=== PATIENT | male | born 1960 | race Two or more races ===

== ENCOUNTER 2020-03-01 22:48 | Inpatient (IN) | payer BC ==
[~2020-03-01] VITALS: Ht 182.9 cm; Wt 80.4 kg
[~2020-03-01 22:48] MED LIST: BISACODYL 10MG SUPP PR PRN; DIPHENHYDRAMINE 25MG CAPSULE PO PRN
[2020-03-01] MEDS ORDERED: NITROGLYCERIN 0.4MG TABLET SL SL PRN (23:30)
[2020-03-01] MEDS: CHLORHEXIDINE GLUCONATE 4% EXTERNAL USE TOP SCH (23:30)
[2020-03-01] MEDS ORDERED: ACETAMINOPHEN 325MG TABLET PO PRN (23:30)
[2020-03-01] MEDS ORDERED: DOCUSATE SODIUM 100MG CAPSULE PO SCH (23:45)
[2020-03-02] VITALS (53 sets, daily range): BP systolic 79–288; BP diastolic 14–280
[2020-03-02 00:43] LABS: BASOPHILS % 0.8 % (0.0-2.0); EOSINOPHILS % 0.9 % (0.0-5.0); HEMATOCRIT. 37.9 % (42.0-52.0); HEMOGLOBIN. 13.3 g/dL (14.0-18.0); MEAN CORPUSCULAR HEMOGLOBIN 31.8 pg (28.0-32.0); MEAN CORPUSCULAR VOLUME 90.8 fL (80.0-94.0); MEAN PLATELET VOLUME 9.4 fl (7.4-10.4); MONOCYTES % 7.8 % (2.0-8.0); NEUTROPHILS % 42.5 % (40.0-76.0); PLATELET 227 x1000/uL (130-400); RED BLOOD CELL COUNT 4.18 mill/uL (4.7-6.1); RED CELL DISTRIBUTION WIDTH 12.9 % (11.6-14.6)
[2020-03-02 00:46] LABS: CHLORIDE 106 mEq/L (98-107)
[2020-03-02 00:56] LABS: INR 1.1; PARTIAL THROMBOPLASTIN TIME 32.5 sec (23.4-31.0); PROTHROMBIN TIME 11.4 sec (9.6-11.0)
[2020-03-02] MEDS ORDERED: OLME20TA22 MT (04:41)
[2020-03-02] MEDS ORDERED: METO-385 MT (04:41)
[2020-03-02] MEDS ORDERED: ATOR40TA70 MT (04:41)
[2020-03-02] MEDS ORDERED: METF-416 MT (04:41)
[2020-03-02] MEDS ORDERED: NITR0.4T49 SL (04:43)
[2020-03-02] MEDS ORDERED: EPINEPHRINE 4 MG in DEXT 5% WATER 246 ML IV ONE (05:00)
[2020-03-02] MEDS ORDERED: PHENYLEPHRINE 10 MG in DEXT 5% WATER 249 ML IV ONE (05:00)
[2020-03-02] MEDS ORDERED: DOBUTAMINE 250MG PREMIX 250 ML IV ONE (05:00)
[2020-03-02] MEDS ORDERED: DEL NIDO ELECTROLYTE-S(PH 7.4) 1,000 ML IV ONE ×2 (05:00)
[2020-03-02] MEDS ORDERED: DOPAMINE 400MG/250ML PREMIX 250 ML IV ONE (05:00)
[2020-03-02] MEDS ORDERED: INSULIN REGULAR (DRIP) 100 UNITS in SODIUM CHLORIDE 0.9% 99 ML IV ONE (05:00)
[2020-03-02] MEDS ORDERED: AMINOCAPROIC ACID 10,000 MG in SODIUM CHLORIDE 0.9% 460 ML IV ONE (05:00)
[2020-03-02] MEDS ORDERED: NICARDIPINE 40MG/200ML PREMIX 200 ML IV ONE (05:00)
[2020-03-02] MEDS ORDERED: PAPAVERINE HCL 180MG in SODIUM CHLORIDE 0.9% 24ML IV ONE (05:00)
[2020-03-02] MEDS ORDERED: DILTIAZEM HCL 5MG/ML 5ML VIAL IV ONE (05:00)
[2020-03-02] MEDS ORDERED: CEFAZOLIN 2,000 MG in DEXT 5% WATER 100 ML IV ONE (05:00)
[2020-03-02] MEDS ORDERED: NOREPINEPHRINE 4 MG in DEXT 5% WATER 246 ML IV ONE (05:00)
[2020-03-02 07:45] LABS: CLARITY URINE CLEAR (CLEAR); COLOR URINE YELLOW (YELLOW); KETONES URINE TRACE (NEGATIVE); LEUKOCYTE ESTERASE URINE NEGATIVE (NEGATIVE); NITRITE URINE NEGATIVE (NEGATIVE); OCCULT BLOOD URINE NEGATIVE (NEGATIVE); PH URINE 5.5 (4.5-8.0); PROTEIN URINE NEGATIVE (NEGATIVE); SPECIFIC GRAVITY URINE 1.019 (1.005-1.030); UROBILINOGEN URINE 0.2 E.U./dL (0.2-1.0)
[2020-03-02] MEDS ORDERED: HEPARIN 1000 UNITS/ML 10ML ONE ×3 (07:52→11:54)
[2020-03-02] MEDS ORDERED: SKIN ADHESIVE 0.7 GM EA TOP ONE (07:53)
[2020-03-02] MEDS ORDERED: BACITRACIN 15GM TUBE TOP ONE (07:53)
[2020-03-02] MEDS ORDERED: THROMBIN (BOVINE) 5000 UNITS/VIAL TOP ONE (07:54)
[2020-03-02] MEDS ORDERED: BACITRACIN 50,000 UNITS/VIAL ONE (07:54)
[2020-03-02] MEDS ORDERED: FUROSEMIDE 40MG/4ML VIAL IVP NR (08:30)
[2020-03-02] MEDS: CHLORHEXIDINE GLUCONATE 4% EXTERNAL USE TOP SCH (09:12)
[2020-03-02] MEDS ORDERED: MAGNESIUM 4 G PREMIX 100 ML IV NR (09:30)
[2020-03-02] MEDS ORDERED: MIDAZOLAM HCL 5 MG/ML VIAL ONE (10:02)
[2020-03-02] MEDS ORDERED: HYDROMORPHONE HCL/PF 2MG/ML (OR) ONE ×2 (10:02→11:00)
[2020-03-02] MEDS ORDERED: ROCURONIUM BROMIDE 10MG/ML VIAL 5ML IV ONE (10:15)
[2020-03-02] MEDS ORDERED: DEXAMETHASONE 4MG/ML 1ML VIAL ONE (10:15)
[2020-03-02] MEDS ORDERED: PROPOFOL 200MG/20ML VIAL IV ONE (10:15)
[2020-03-02] MEDS ORDERED: POTASSIUM CHLORIDE 20MEQ/10ML INJ IV ONE (11:10)
[2020-03-02] MEDS ORDERED: CALCIUM CHLORIDE 1GM/10ML SYR IV ONE ×2 (11:56→12:06)
[2020-03-02] MEDS ORDERED: ALBUMIN HUMAN 12.5G/250ML (5%) IV ONE ×2 (11:58→12:06)
[2020-03-02] MEDS ORDERED: SODIUM BICARBONATE 8.4% 1 MEQ/ML 50ML SYR IV ONE ×2 (12:25→13:05)
[2020-03-02] MEDS ORDERED: KETOROLAC 30MG/ML VIAL ONE (13:56)
[2020-03-02] MEDS ORDERED: NEOSTIGMINE METHYLSULFATE 1MG/ML 10 ML VIAL ONE (14:10)
[2020-03-02] MEDS ORDERED: ALBUMIN HUMAN 25GM/100ML (25%) IV ONE ×2 (14:22→14:29)
[2020-03-02] MEDS ORDERED: SODIUM CHLORIDE 0.9% 500 ML IV PRN (14:23)
[2020-03-02] MEDS ORDERED: DOPAMINE 400MG/250ML PREMIX 250 ML IV SCH ×2 (14:23→19:45)
[2020-03-02] MEDS ORDERED: DEXT 5%/0.45% NACL 1000ML 1,000 ML IV SCH (14:23)
[2020-03-02] MEDS ORDERED: OXYCODONE HCL/ACETAMINOPHEN 5/325MG TABLET PO PRN ×2 (14:30)
[2020-03-02] MEDS ORDERED: ACETAMINOPHEN 325MG TABLET PO PRN (14:30)
[2020-03-02] MEDS ORDERED: CALCIUM CHLORIDE 3,000 MG in DEXT 5% WATER 250 ML IV PRN (14:30)
[2020-03-02] MEDS ORDERED: MORPHINE SULFATE 2 MG/ML CPJ (NOT FOR IM USE) IV PRN (14:30)
[2020-03-02] MEDS ORDERED: MAGNESIUM SULFATE 3 GM in DEXT 5% WATER 100 ML IV PRN (14:30)
[2020-03-02] MEDS ORDERED: ALBUMIN HUMAN 12.5G/250ML (5%) IV PRN (14:30)
[2020-03-02] MEDS ORDERED: ALBUMIN HUMAN 25GM/100ML (25%) IV PRN (14:30)
[2020-03-02] MEDS ORDERED: MAGNESIUM 1 G PREMIX 100 ML IV PRN (14:30)
[2020-03-02] MEDS ORDERED: MAGNESIUM 2 G PREMIX 50 ML IV PRN (14:30)
[2020-03-02] MEDS ORDERED: CALCIUM CHLORIDE 5,000 MG in DEXT 5% WATER 500 ML IV PRN (14:30)
[2020-03-02] MEDS ORDERED: ONDANSETRON HCL 4MG/2ML INJ IV PRN (14:30)
[2020-03-02 15:10] LABS: BG BASE EXCESS -6.6 mmol/L (-2.0-2.0); BG FRACTION INSPIRED OXYGEN 99; BG HCO3 ACT 23.7 mmol/L (22.0-26.0); BG METHEMOGLOBIN 0.2 % (0.0-1.5); BG OXYHEMOGLOBIN 92.8 % (94.0-97.0); BG PCO2 75.5 mmHg (35.0-45.0); BG PH 7.115 (7.350-7.450); BG PO2 90.9 mmHg (75.0-100.0); BG SAMPLE SITE A-LINE; BG VENT MODE MASK - NRB
[2020-03-02 15:29] LABS: BASOPHILS % 0.2 % (0.0-2.0); EOSINOPHILS % 0.1 % (0.0-5.0); HEMATOCRIT. 30.9 % (42.0-52.0); HEMOGLOBIN. 10.5 g/dL (14.0-18.0); LYMPHOCYTES % 16.1 % (20.0-50.0); MEAN CORPUSCULAR HEMOGLOBIN 31.2 pg (28.0-32.0); MEAN CORPUSCULAR VOLUME 91.3 fL (80.0-94.0); MONOCYTES % 3.2 % (2.0-8.0); NEUTROPHILS % 80.4 % (40.0-76.0); PLATELET 190 x1000/uL (130-400); RED BLOOD CELL COUNT 3.38 mill/uL (4.7-6.1); RED CELL DISTRIBUTION WIDTH 12.7 % (11.6-14.6)
[2020-03-02] MEDS ORDERED: IPRATROPIUM/ALBUTEROL 0.5-3(2.5)MG/3ML NEB HHN PRN (15:30)
[2020-03-02 15:32] LABS: CHLORIDE 111 mEq/L (98-107)
[2020-03-02] MEDS ORDERED: FLUMAZENIL 0.1 MG/ML 5ML VIAL IV NR (15:45)
[2020-03-02] MEDS ORDERED: SODIUM BICARBONATE 8.4% 1 MEQ/ML 50ML SYR IV NR ×2 (15:45→17:45)
[2020-03-02 15:54] LABS: INR 1.2; PARTIAL THROMBOPLASTIN TIME 27.3 sec (23.4-31.0)
[2020-03-02 16:08] LABS: BG BASE EXCESS -4.5 mmol/L (-2.0-2.0); BG CARBOXYHEMOGLOBIN 0.3 % (0.5-1.5); BG DEOXYHEMOGLOBIN 4.7 % (0.0-5.0); BG FRACTION INSPIRED OXYGEN 44; BG HCO3 ACT 23.8 mmol/L (22.0-26.0); BG METHEMOGLOBIN 0.4 % (0.0-1.5); BG OXYGEN SATURATION 95.3 % (92.0-98.5); BG OXYHEMOGLOBIN 94.6 % (94.0-97.0); BG PCO2 60.1 mmHg (35.0-45.0); BG PH 7.215 (7.350-7.450); BG PO2 100.3 mmHg (75.0-100.0); BG SAMPLE SITE A-LINE; BG TOTAL HEMOGLOBIN 10.5 g/dL (12.0-18.0); BG VENT MODE NASAL CANNULA
[2020-03-02] MEDS: DOCUSATE SODIUM 100MG CAPSULE PO SCH (17:00)
[2020-03-02 17:14] LABS: BG CARBOXYHEMOGLOBIN 0.3 % (0.5-1.5); BG DEOXYHEMOGLOBIN 5.2 % (0.0-5.0); BG HCO3 ACT 18.2 mmol/L (22.0-26.0); BG METHEMOGLOBIN 0.4 % (0.0-1.5); BG OXYGEN SATURATION 94.8 % (92.0-98.5); BG OXYHEMOGLOBIN 94.1 % (94.0-97.0); BG PCO2 45.5 mmHg (35.0-45.0); BG PH 7.221 (7.350-7.450); BG PO2 96.7 mmHg (75.0-100.0); BG SAMPLE SITE A-LINE; BG TOTAL HEMOGLOBIN 10.2 g/dL (12.0-18.0); BG VENT MODE NASAL CANNULA
[2020-03-02] MEDS ORDERED: KCL 20MEQ/100ML PREMIX 100 ML IV PRN (17:45)
[2020-03-02] MEDS: DEXT 5%/0.45% NACL 1000ML 1,000 ML IV SCH (17:59)
[2020-03-02] MEDS ORDERED: PROTAMINE SULFATE 10MG/ML VIAL 25ML IV NR (18:00)
[2020-03-02] MEDS: ASPIRIN 81MG EC TABLET PO SCH (18:00)
[2020-03-02] MEDS: CLOPIDOGREL 75MG TABLET PO SCH (18:00)
[2020-03-02] MEDS ORDERED: PROTAMINE SULFATE 10MG/ML VIAL 5ML IV SCH (18:00)
[2020-03-02] MEDS ORDERED: KCL 10MEQ/50ML PREMIX 150 ML IV PRN (18:15)
[2020-03-02] MEDS ORDERED: KCL 10MEQ/50ML PREMIX 200 ML IV PRN (18:15)
[2020-03-02] MEDS ORDERED: ALBUMIN HUMAN 25GM/100ML (25%) IV SCH (18:30)
[2020-03-02] MEDS ORDERED: AMINOCAPROIC ACID 5,000 MG in SODIUM CHLORIDE 0.9% 230 ML IV NR (18:30)
[2020-03-02] MEDS ORDERED: AMINOCAPROIC ACID 5,000 MG in SODIUM CHLORIDE 0.9% 230 ML IV SCH (18:30)
[2020-03-02] MEDS: CEFAZOLIN 1000MG PREMIX 50 ML IV SCH (18:50)
[2020-03-02] MEDS: FAMOTIDINE 20MG/2ML VIAL IV SCH (18:50)
[2020-03-02] MEDS: BACITRACIN 15GM TUBE TOP SCH (18:52)
[2020-03-02] MEDS ORDERED: EPINEPHRINE 4 MG in DEXT 5% WATER 246 ML IV SCH (19:45)
[2020-03-02] MEDS: CARVEDILOL 3.125 MG TABLET PO SCH (21:00)
[2020-03-02] MEDS: ATORVASTATIN CALCIUM 40MG TABLET PO SCH (21:00)
[2020-03-02 21:49] LABS: HEMATOCRIT. 21.9 % (42.0-52.0); HEMOGLOBIN. 7.3 g/dL (14.0-18.0); MEAN CORPUSCULAR HEMOGLOBIN 30.3 pg (28.0-32.0); MEAN CORPUSCULAR VOLUME 90.4 fL (80.0-94.0); MEAN PLATELET VOLUME 9.2 fl (7.4-10.4); PLATELET 157 x1000/uL (130-400); RED BLOOD CELL COUNT 2.42 mill/uL (4.7-6.1); RED CELL DISTRIBUTION WIDTH 12.7 % (11.6-14.6)
[2020-03-02 21:57] LABS: CHLORIDE 111 mEq/L (98-107)
[2020-03-02 23:00] LABS: PLATELET ESTIMATE NORMAL
[2020-03-03] VITALS (96 sets, daily range): BP systolic 51–157; BP diastolic 19–75
[2020-03-03] MEDS: IPRATROPIUM/ALBUTEROL 0.5-3(2.5)MG/3ML NEB HHN SCH ×6 (00:35→20:21)
[2020-03-03] MEDS: INSULIN REGULAR (DRIP) 100 UNITS in SODIUM CHLORIDE 0.9% 99 ML IV SCH ×2 (01:14→11:36)
[2020-03-03] MEDS ORDERED: FUROSEMIDE 40MG/4ML VIAL IVP NR ×2 (01:30→14:00)
[2020-03-03] MEDS: CEFAZOLIN 1000MG PREMIX 50 ML IV SCH ×3 (01:44→17:24)
[2020-03-03] MEDS ORDERED: DOPAMINE 400MG/250ML PREMIX 250 ML IV SCH (03:00)
[2020-03-03 04:47] LABS: BG BASE EXCESS 3.2 mmol/L (-2.0-2.0); BG CARBOXYHEMOGLOBIN 0.3 % (0.5-1.5); BG DEOXYHEMOGLOBIN 2.4 % (0.0-5.0); BG FRACTION INSPIRED OXYGEN 36; BG HCO3 ACT 27.8 mmol/L (22.0-26.0); BG METHEMOGLOBIN 0.2 % (0.0-1.5); BG OXYGEN SATURATION 97.6 % (92.0-98.5); BG OXYHEMOGLOBIN 97.1 % (94.0-97.0); BG PH 7.429 (7.350-7.450); BG SAMPLE SITE A-LINE; BG TOTAL HEMOGLOBIN 9.2 g/dL (12.0-18.0); BG VENT MODE NASAL CANNULA
[2020-03-03 05:56] LABS: HEMATOCRIT. 24.9 % (42.0-52.0); HEMOGLOBIN. 8.9 g/dL (14.0-18.0); MEAN CORPUSCULAR HEMOGLOBIN 31.5 pg (28.0-32.0); MEAN CORPUSCULAR VOLUME 88.4 fL (80.0-94.0); MEAN PLATELET VOLUME 8.7 fl (7.4-10.4); PLATELET 141 x1000/uL (130-400); RED BLOOD CELL COUNT 2.82 mill/uL (4.7-6.1); RED CELL DISTRIBUTION WIDTH 13.3 % (11.6-14.6)
[2020-03-03 06:03] LABS: CHLORIDE 110 mEq/L (98-107)
[2020-03-03] MEDS ORDERED: BUPIVACAINE HCL/EPINEPHRINE/PF 0.5%/0.0005 10ML ONE (07:20)
[2020-03-03] MEDS ORDERED: BACITRACIN 50,000 UNITS/VIAL ONE (07:21)
[2020-03-03] MEDS ORDERED: THROMBIN (BOVINE) 5000 UNITS/VIAL TOP ONE ×2 (07:21→08:08)
[2020-03-03] MEDS ORDERED: NORMAL SALINE 0.9% 10 ML SYR ONE (07:21)
[2020-03-03] MEDS ORDERED: SKIN ADHESIVE 0.7 GM EA TOP ONE (07:25)
[2020-03-03] MEDS ORDERED: TETRACAINE/BENZOCAINE/BUTAMBEN 20 GM SPRAY MM ONE (07:25)
[2020-03-03] MEDS ORDERED: LIDOCAINE HCL 2% JELLY 5ML ONE (07:25)
[2020-03-03] MEDS ORDERED: LIDOCAINE HCL/EPINEPHRINE 1%-EPI 1:100,000 20 ML VIAL ONE (07:26)
[2020-03-03] MEDS ORDERED: HEPARIN 1000 UNITS/ML 10ML ONE (08:10)
[2020-03-03 08:16] LABS: BG BASE EXCESS -1.8 mmol/L (-2.0-2.0); BG CARBOXYHEMOGLOBIN 0.3 % (0.5-1.5); BG DEOXYHEMOGLOBIN 4.7 % (0.0-5.0); BG FRACTION INSPIRED OXYGEN 32; BG HCO3 ACT 22.1 mmol/L (22.0-26.0); BG METHEMOGLOBIN 0.1 % (0.0-1.5); BG OXYGEN SATURATION 95.3 % (92.0-98.5); BG OXYHEMOGLOBIN 94.9 % (94.0-97.0); BG PCO2 34.5 mmHg (35.0-45.0); BG PH 7.425 (7.350-7.450); BG PO2 80.8 mmHg (75.0-100.0); BG SAMPLE SITE A-LINE; BG VENT MODE NASAL CANNULA
[2020-03-03] MEDS ORDERED: MAGNESIUM 4 G PREMIX 100 ML IV NR ×2 (08:30→14:30)
[2020-03-03] MEDS ORDERED: VANCOMYCIN HCL 1 GM/VIAL ONE (08:37)
[2020-03-03] MEDS: CARVEDILOL 3.125 MG TABLET PO SCH ×3 (09:00→21:51)
[2020-03-03] MEDS: CLOPIDOGREL 75MG TABLET PO SCH ×2 (09:00→23:08)
[2020-03-03] MEDS: ASPIRIN 81MG EC TABLET PO SCH ×2 (09:00→23:08)
[2020-03-03] MEDS: BACITRACIN 15GM TUBE TOP SCH ×2 (09:00→17:24)
[2020-03-03] MEDS: DOCUSATE SODIUM 100MG CAPSULE PO SCH ×2 (09:00→17:24)
[2020-03-03] MEDS: FAMOTIDINE 20MG/2ML VIAL IV SCH (11:18)
[2020-03-03] MEDS: KETOROLAC 30MG/ML VIAL IV PRN (11:18)
[2020-03-03] MEDS ORDERED: DEXTROSE 50% WATER 50ML SYRINGE IV PRN ×2 (11:30)
[2020-03-03] MEDS: BLOOD SUGAR DIAGNOSTIC STRIP TEST SCH ×12 (12:00→23:08)
[2020-03-03] MEDS ORDERED: INSULIN REGULAR (DRIP) 100 UNITS in SODIUM CHLORIDE 0.9% 99 ML IV SCH ×2 (12:00→17:16)
[2020-03-03 12:28] LABS: CHLORIDE 113 mEq/L (98-107)
[2020-03-03 12:43] LABS: BG BASE EXCESS 0.5 mmol/L (-2.0-2.0); BG CARBOXYHEMOGLOBIN 0.7 % (0.5-1.5); BG DEOXYHEMOGLOBIN 5.7 % (0.0-5.0); BG FRACTION INSPIRED OXYGEN 36; BG HCO3 ACT 24.3 mmol/L (22.0-26.0); BG METHEMOGLOBIN 0.2 % (0.0-1.5); BG OXYGEN SATURATION 94.2 % (92.0-98.5); BG OXYHEMOGLOBIN 93.4 % (94.0-97.0); BG PCO2 36.5 mmHg (35.0-45.0); BG PH 7.442 (7.350-7.450); BG SAMPLE SITE A-LINE; BG TOTAL HEMOGLOBIN 11.9 g/dL (12.0-18.0); BG VENT MODE NASAL CANNULA
[2020-03-03 12:45] LABS: HEMOGLOBIN. 10.9 g/dL (14.0-18.0); MEAN CORPUSCULAR HEMOGLOBIN 30.3 pg (28.0-32.0); MEAN CORPUSCULAR VOLUME 86.4 fL (80.0-94.0); MEAN PLATELET VOLUME 9.2 fl (7.4-10.4); PLATELET 98 x1000/uL (130-400); RED BLOOD CELL COUNT 3.59 mill/uL (4.7-6.1); RED CELL DISTRIBUTION WIDTH 14.5 % (11.6-14.6)
[2020-03-03 13:14] LABS: PLATELET ESTIMATE DECREASED
[2020-03-03 13:28] LABS: PLATELET ESTIMATE NORMAL
[2020-03-03] MEDS: DEXT 5%/0.45% NACL 1000ML 1,000 ML IV SCH (15:49)
[2020-03-03 19:04] LABS: BG BASE EXCESS -2.1 mmol/L (-2.0-2.0); BG CARBOXYHEMOGLOBIN 0.3 % (0.5-1.5); BG DEOXYHEMOGLOBIN 4.3 % (0.0-5.0); BG FRACTION INSPIRED OXYGEN 28; BG HCO3 ACT 22.1 mmol/L (22.0-26.0); BG METHEMOGLOBIN 0.1 % (0.0-1.5); BG OXYGEN SATURATION 95.7 % (92.0-98.5); BG OXYHEMOGLOBIN 95.3 % (94.0-97.0); BG PCO2 35.9 mmHg (35.0-45.0); BG PH 7.407 (7.350-7.450); BG PO2 85.6 mmHg (75.0-100.0); BG SAMPLE SITE RIGHT RADIAL; BG TOTAL HEMOGLOBIN 11.4 g/dL (12.0-18.0); BG VENT MODE NASAL CANNULA
[2020-03-03 19:12] LABS: HEMATOCRIT. 31.4 % (42.0-52.0); HEMOGLOBIN. 10.9 g/dL (14.0-18.0); MEAN CORPUSCULAR HEMOGLOBIN 30.3 pg (28.0-32.0); MEAN CORPUSCULAR VOLUME 87.3 fL (80.0-94.0); MEAN PLATELET VOLUME 9.5 fl (7.4-10.4); PLATELET 104 x1000/uL (130-400); RED CELL DISTRIBUTION WIDTH 14.4 % (11.6-14.6)
[2020-03-03 19:19] LABS: CHLORIDE 107 mEq/L (98-107)
[2020-03-03 20:04] LABS: PLATELET ESTIMATE L
[2020-03-03] MEDS: ATORVASTATIN CALCIUM 40MG TABLET PO SCH (20:35)
[2020-03-03] MEDS ORDERED: FUROSEMIDE 40MG/4ML VIAL IVP SCH (21:00)
[2020-03-04] VITALS (54 sets, daily range): BP systolic 87–137; BP diastolic 30–78
[2020-03-04] MEDS: BLOOD SUGAR DIAGNOSTIC STRIP TEST SCH ×11 (00:05→20:37)
[2020-03-04] MEDS: KETOROLAC 30MG/ML VIAL IV PRN (01:41)
[2020-03-04] MEDS: IPRATROPIUM/ALBUTEROL 0.5-3(2.5)MG/3ML NEB HHN SCH ×6 (04:00→21:20)
[2020-03-04 05:47] LABS: HEMATOCRIT. 29.2 % (42.0-52.0); HEMOGLOBIN. 10.4 g/dL (14.0-18.0); LYMPHOCYTES % 8.8 % (20.0-50.0); MEAN CORPUSCULAR HEMOGLOBIN 30.6 pg (28.0-32.0); MEAN CORPUSCULAR VOLUME 85.9 fL (80.0-94.0); MEAN PLATELET VOLUME 9.4 fl (7.4-10.4); MONOCYTES % 9.6 % (2.0-8.0); NEUTROPHILS % 81.6 % (40.0-76.0); PLATELET 101 x1000/uL (130-400); RED BLOOD CELL COUNT 3.41 mill/uL (4.7-6.1); RED CELL DISTRIBUTION WIDTH 14.8 % (11.6-14.6)
[2020-03-04 05:57] LABS: CHLORIDE 108 mEq/L (98-107)
[2020-03-04] MEDS: CLOPIDOGREL 75MG TABLET PO SCH (08:35)
[2020-03-04] MEDS: ASPIRIN 81MG EC TABLET PO SCH (08:35)
[2020-03-04] MEDS: DOCUSATE SODIUM 100MG CAPSULE PO SCH ×2 (08:35→18:03)
[2020-03-04] MEDS: CARVEDILOL 3.125 MG TABLET PO SCH ×2 (08:36→20:37)
[2020-03-04] MEDS: BACITRACIN 15GM TUBE TOP SCH ×2 (08:36→18:05)
[2020-03-04] MEDS: FAMOTIDINE 20MG/2ML VIAL IV SCH (08:36)
[2020-03-04] MEDS ORDERED: BLOOD SUGAR DIAGNOSTIC STRIP TEST SCH (09:00)
[2020-03-04] MEDS: DEXT 5%/0.45% NACL 1000ML 1,000 ML IV SCH (09:28)
[2020-03-04] MEDS ORDERED: FUROSEMIDE 40MG/4ML VIAL IVP NR (10:45)
[2020-03-04] MEDS ORDERED: ALBUMIN HUMAN 12.5G/250ML (5%) IV NR (11:00)
[2020-03-04] MEDS ORDERED: ALBUMIN HUMAN 25GM/100ML (25%) IV NR (11:00)
[2020-03-04 11:12] LABS: BG BASE EXCESS -0.4 mmol/L (-2.0-2.0); BG CARBOXYHEMOGLOBIN 0.3 % (0.5-1.5); BG DEOXYHEMOGLOBIN 4.8 % (0.0-5.0); BG FRACTION INSPIRED OXYGEN 28; BG HCO3 ACT 22.4 mmol/L (22.0-26.0); BG METHEMOGLOBIN 0.1 % (0.0-1.5); BG OXYGEN SATURATION 95.2 % (92.0-98.5); BG OXYHEMOGLOBIN 94.8 % (94.0-97.0); BG PCO2 30.3 mmHg (35.0-45.0); BG PH 7.486 (7.350-7.450); BG PO2 79.6 mmHg (75.0-100.0); BG SAMPLE SITE RIGHT RADIAL; BG TOTAL HEMOGLOBIN 10.3 g/dL (12.0-18.0); BG VENT MODE NASAL CANNULA
[2020-03-04] MEDS ORDERED: DEXTROSE 50% WATER 50ML SYRINGE IV PRN (11:30)
[2020-03-04] MEDS: INSULIN LISPRO 100 UNITS/ML SUBCUT SCH ×4 (12:55→20:46)
[2020-03-04] MEDS: ATORVASTATIN CALCIUM 40MG TABLET PO SCH (20:36)
[2020-03-05] VITALS (12 sets, daily range): BP systolic 102–153; BP diastolic 63–87
[2020-03-05] MEDS: IPRATROPIUM/ALBUTEROL 0.5-3(2.5)MG/3ML NEB HHN SCH ×6 (04:00→21:47)
[2020-03-05] MEDS: BLOOD SUGAR DIAGNOSTIC STRIP TEST SCH ×4 (06:18→20:55)
[2020-03-05 06:34] LABS: BASOPHILS % 0.1 % (0.0-2.0); EOSINOPHILS % 0.3 % (0.0-5.0); HEMATOCRIT. 30.1 % (42.0-52.0); HEMOGLOBIN. 10.4 g/dL (14.0-18.0); LYMPHOCYTES % 21.4 % (20.0-50.0); MEAN CORPUSCULAR HEMOGLOBIN 30.3 pg (28.0-32.0); MEAN CORPUSCULAR VOLUME 87.9 fL (80.0-94.0); MEAN PLATELET VOLUME 9.6 fl (7.4-10.4); MONOCYTES % 9.5 % (2.0-8.0); NEUTROPHILS % 68.7 % (40.0-76.0); PLATELET 107 x1000/uL (130-400); RED BLOOD CELL COUNT 3.42 mill/uL (4.7-6.1); RED CELL DISTRIBUTION WIDTH 14.9 % (11.6-14.6)
[2020-03-05 06:46] LABS: CHLORIDE 108 mEq/L (98-107)
[2020-03-05] MEDS: ASPIRIN 81MG EC TABLET PO SCH (09:16)
[2020-03-05] MEDS: CARVEDILOL 3.125 MG TABLET PO SCH (09:17)
[2020-03-05] MEDS: CLOPIDOGREL 75MG TABLET PO SCH (09:17)
[2020-03-05] MEDS: DOCUSATE SODIUM 100MG CAPSULE PO SCH ×2 (09:17→17:17)
[2020-03-05] MEDS: FAMOTIDINE 20MG/2ML VIAL IV SCH (09:19)
[2020-03-05] MEDS ORDERED: IBUPROFEN 400MG TABLET PO PRN (09:30)
[2020-03-05] MEDS: INSULIN LISPRO 100 UNITS/ML SUBCUT SCH ×4 (09:33→20:57)
[2020-03-05] MEDS: BACITRACIN 15GM TUBE TOP SCH ×2 (10:33→17:15)
[2020-03-05] MEDS: FUROSEMIDE 40MG TABLET PO SCH (10:33)
[2020-03-05] MEDS ORDERED: MAGNESIUM 4 G PREMIX 100 ML IV SCH (11:00)
[2020-03-05] MEDS: ATORVASTATIN CALCIUM 40MG TABLET PO SCH (20:54)
[2020-03-05] MEDS: CARVEDILOL 6.25 MG TABLET PO SCH (20:55)
[2020-03-06] VITALS (10 sets, daily range): BP systolic 92–130; BP diastolic 53–76
[2020-03-06] MEDS: IPRATROPIUM/ALBUTEROL 0.5-3(2.5)MG/3ML NEB HHN SCH ×3 (04:00→08:54)
[2020-03-06 06:29] LABS: BASOPHILS % 0.3 % (0.0-2.0); HEMATOCRIT. 29.7 % (42.0-52.0); HEMOGLOBIN. 10.3 g/dL (14.0-18.0); LYMPHOCYTES % 23.9 % (20.0-50.0); MEAN CORPUSCULAR HEMOGLOBIN 30.6 pg (28.0-32.0); MEAN CORPUSCULAR VOLUME 88.5 fL (80.0-94.0); MEAN PLATELET VOLUME 9.5 fl (7.4-10.4); MONOCYTES % 10.7 % (2.0-8.0); NEUTROPHILS % 64.1 % (40.0-76.0); PLATELET 131 x1000/uL (130-400); RED BLOOD CELL COUNT 3.36 mill/uL (4.7-6.1); RED CELL DISTRIBUTION WIDTH 14.3 % (11.6-14.6)
[2020-03-06] MEDS: BLOOD SUGAR DIAGNOSTIC STRIP TEST SCH (06:33)
[2020-03-06 06:38] LABS: CHLORIDE 107 mEq/L (98-107)
[2020-03-06] MEDS: FUROSEMIDE 40MG TABLET PO SCH (08:09)
[2020-03-06] MEDS: ASPIRIN 81MG EC TABLET PO SCH (08:09)
[2020-03-06] MEDS: FAMOTIDINE 20MG/2ML VIAL IV SCH (08:09)
[2020-03-06] MEDS: BACITRACIN 15GM TUBE TOP SCH (08:10)
[2020-03-06] MEDS: CLOPIDOGREL 75MG TABLET PO SCH (08:10)
[2020-03-06] MEDS: DOCUSATE SODIUM 100MG CAPSULE PO SCH (08:10)
[2020-03-06] MEDS: CARVEDILOL 6.25 MG TABLET PO SCH (08:10)
[2020-03-06] MEDS: INSULIN LISPRO 100 UNITS/ML SUBCUT SCH (08:11)
[2020-03-06] MEDS ORDERED: MAGNESIUM OXIDE 400MG TABLET PO SCH (09:00)
[2020-03-06] MEDS ORDERED: COR6 PO (09:53)
[2020-03-06] MEDS ORDERED: OXYC-523 MT (09:53)
[2020-03-06] MEDS ORDERED: ASPI-1158 PO (09:53)
[2020-03-06] MEDS ORDERED: CLOP75TA15 PO (09:53)
[2020-03-06] MEDS ORDERED: MAGNESIUM 2 G PREMIX 50 ML IV SCH (11:00)
== END 2020-03-06 11:45 | disposition home or self-care (01) | DRG 235 ==
LOC: ER 22:48 → EDBEDREQTM 03-02 01:08 → EDBEDREQDT 03-02 01:08 → EDBEDREQ 03-02 01:08 → ENRESERV 03-02 02:15 → CVICU 03-02 04:04 → 3WST 03-04 15:31
PROVIDERS: ADMIT Internal Medicine Nephrology; ATTEND Internal Medicine Nephrology
PROC: 02100Z9 Bypass Coronary Artery, One Artery from Left Internal Mammary, Open Approach (ICD-10-PCS; principal; 2020-03-02)
PROC: 021309W Bypass Coronary Artery, Four or More Arteries from Aorta with Autologous Venous Tissue, Open Approach (ICD-10-PCS; 2020-03-02)
PROC: 06BQ4ZZ Excision of Left Saphenous Vein, Percutaneous Endoscopic Approach (ICD-10-PCS; 2020-03-02)
PROC: 30233K1 Transfusion of Nonautologous Frozen Plasma into Peripheral Vein, Percutaneous Approach (ICD-10-PCS; 2020-03-02)
PROC: 30233N1 Transfusion of Nonautologous Red Blood Cells into Peripheral Vein, Percutaneous Approach (ICD-10-PCS; 2020-03-02)
PROC: 30233R1 Transfusion of Nonautologous Platelets into Peripheral Vein, Percutaneous Approach (ICD-10-PCS; 2020-03-02)
PROC: 5A09357 Assistance with Respiratory Ventilation, Less than 24 Consecutive Hours, Continuous Positive Airway Pressure (ICD-10-PCS; 2020-03-02)
PROC: 0WU Anatomical Regions, General, Supplement (ICD-10-PCS; 2020-03-03)
DX: I25.110 Atherosclerotic heart disease of native coronary artery with unstable angina pectoris (principal); G93.41 Metabolic encephalopathy; R04.89 Hemorrhage from other sites in respiratory passages; I10 Essential (primary) hypertension; E87.5 Hyperkalemia; E78.5 Hyperlipidemia, unspecified; E83.42 Hypomagnesemia; E11.9 Type 2 diabetes mellitus without complications; D64.9 Anemia, unspecified; E78.1 Pure hyperglyceridemia; E78.00 Pure hypercholesterolemia, unspecified; Z82.49 Family history of ischemic heart disease and other diseases of the circulatory system; Z20.828 Contact with and (suspected) exposure to other viral communicable diseases
CPT/HCPCS: 36415; 36600; 71045; 80048; 80053; 80061; 81003; 82375; 82805; 82962; 83036; 83735; 84443; 85025; 85384; 86850; 86900; 86920; 86927; 92610; 93005; 93306; 93880; 93970; 94640; 97116; 97162; 97166; 97530; 97535; 99291; J0171; J0690; J1100; J1170; J1250; J1265; J1644; J1815; J1885; J1940; J2250; J2370; J2405; J2440; J2704; J2710; J2720; J3370; J3475; J3480; J3490; J7040; J7050; J7060; P9016; P9017; P9034; P9041; P9047; U0003-CS

== ENCOUNTER → 2022-05-17 | Day surgery (SDC) | payer BC ==
[~2022-05-17] VITALS: Ht 182.9 cm; Wt 79.4 kg
[~2022-05-17] MED LIST changes: +ASPI-1406 PO; +ATOR40TA70 MT; +ATROPINE SULFATE 0.4MG/ML VIAL IV PRN; -BISACODYL 10MG SUPP PR PRN; +CEFAZOLIN SODIUM 1000MG/VIAL ONE; +CLOP75TA15 PO; +COR6 PO; +DEXAMETHASONE 4MG/ML 1ML VIAL ONE; -DIPHENHYDRAMINE 25MG CAPSULE PO PRN; +FENTANYL CITRATE/PF 50MCG/ML 2ML VIAL IV PRN; +FENTANYL CITRATE/PF 50MCG/ML 2ML VIAL ONE; +LACTATED RINGERS 1,000 ML IV SCH; +LIDOCAINE HCL 2% 5ML SYRINGE IV ONE; +MAGN400C PO; +METF-414 PO; +METF-416 MT; +MIDAZOLAM HCL 2 MG/2 ML VIAL ONE; +NITR0.4T49 SL; +OLME20TA22 MT; +OLME20TA22 PO; +ONDANSETRON HCL 4MG/2ML INJ ONE; +OXYC1TAB5 MT; +PROPOFOL 200MG/20ML VIAL IV ONE
[2022-05-17 07:19] LABS: CLARITY URINE CLEAR (CLEAR); COLOR URINE YELLOW (YELLOW); PH URINE 5.5 (4.5-8.0); PROTEIN URINE NEGATIVE (NEGATIVE); SPECIFIC GRAVITY URINE 1.027 (1.005-1.030)
[2022-05-17 07:20] LABS: KETONES URINE NEGATIVE (NEGATIVE); LEUKOCYTE ESTERASE URINE 1+ (NEGATIVE); NITRITE URINE NEGATIVE (NEGATIVE); OCCULT BLOOD URINE NEGATIVE (NEGATIVE); UROBILINOGEN URINE 0.2 E.U./dL (0.2-1.0)
[2022-05-17 07:31] LABS: BASOPHILS % 0.6 % (0.0-2.0); EOSINOPHILS % 0.6 % (0.0-5.0); HEMOGLOBIN. 13.5 g/dL (14.0-18.0); MEAN CORPUSCULAR HEMOGLOBIN 30.9 pg (28.0-32.0); MEAN CORPUSCULAR VOLUME 93.9 fL (80.0-94.0); MEAN PLATELET VOLUME 8.6 fl (7.4-10.4); MONOCYTES % 9.5 % (2.0-8.0); NEUTROPHILS % 62.3 % (40.0-76.0); PLATELET 255 x1000/uL (130-400); RED BLOOD CELL COUNT 4.37 mill/uL (4.7-6.1); RED CELL DISTRIBUTION WIDTH 13.4 % (11.6-14.6)
[2022-05-17 08:15] LABS: CHLORIDE 103 mEq/L (98-107)
== END | disposition home or self-care (01) ==
LOC: OR 06:32
PROVIDERS: ATTEND Urology
DX: N35.919 Unspecified urethral stricture, male, unspecified site (principal); I25.10 Atherosclerotic heart disease of native coronary artery without angina pectoris; I10 Essential (primary) hypertension; E78.00 Pure hypercholesterolemia, unspecified; E11.9 Type 2 diabetes mellitus without complications; Z79.84 Long term (current) use of oral hypoglycemic drugs; Z79.899 Other long term (current) drug therapy; Z98.890 Other specified postprocedural states; Z79.82 Long term (current) use of aspirin; Z82.49 Family history of ischemic heart disease and other diseases of the circulatory system; Z83.3 Family history of diabetes mellitus; Z20.822 Contact with and (suspected) exposure to COVID-19
CPT/HCPCS: 36415; 52276; 71045; 80048; 81003; 85025; 87086; 87426; 93005; C9803; J0690; J1100; J2250; J2405; J2704; J3010; J3490; 87106